=== PATIENT | female | born 1975 | race African-American/Black ===

== ENCOUNTER 2020-02-02 23:12 | Emergency (ER) | payer OTHER ==
[~2020-02-02] VITALS: Ht 162.6 cm; Wt 54.4 kg
[2020-02-02 23:24] VITALS: BP 132/70
[2020-02-02] MEDS ORDERED: TYLENOL EXTRA500 MG ORAL (23:40)
[2020-02-02] MEDS ORDERED: ROBAXIN-750750 MG PO (23:40)
[2020-02-02 23:45] VITALS: BP 132/70
--- NOTE | 2020-02-03 00:05 | Emergency Room Report ---
History of Present Illness General Chief Complaint: Pain Source: Patient Present Illness HPI 44-year-old female presents ED for evaluation of right shoulder pain and chest pain x1 week. Dull, 8 out of 10 radiating towards right side chest. Worse with twisting and bending and movements. Denies shortness of breath. Denies fevers or chills. Denies cough. Denies smoking or drug use. Denies sick contacts or recent travel. No other aggravating relieving factors. Denies any other associated symptoms Allergies: Coded Allergies: No Known Allergies (Unverified , 02/02/20) COVID-19 Screening Contact w/high risk pt: No Recent Travel to affected area: No Experienced COVID-19 symptoms?: No Patient History Past Medical History: none Past Surgical History: none Pertinent Family History: none Social History: Reports: smoking; Denies: alcohol use, drug use Last Menstrual Period: 12/28 Now: No Immunizations: UTD Reviewed Nursing Documentation: PMH: Agreed; PSxH: Agreed Nursing Documentation-PMH Past Medical History: No Stated History Review of Systems All Other Systems: negative except mentioned in HPI Physical Exam Vital Signs Date Time Temp Pulse Resp B/P (MAP) Pulse Ox O2 Delivery O2 Flow Rate FiO2 02/02/20 23:15 98.4 66 18 132/70 (90) 98 Room Air Sp02 EP Interpretation: reviewed, normal General Appearance: no apparent distress, alert, GCS 15, non-toxic Head: normocephalic, atraumatic Eyes: bilateral eye normal inspection, bilateral eye PERRL ENT: hearing grossly normal, normal pharynx, no angioedema, normal voice Neck: full range of motion, supple/symm/no masses Respiratory: chest non-tender, lungs clear, normal breath sounds, speaking full sentences Cardiovascular #1: regular rate, rhythm, no edema Cardiovascular #2: 2+ carotid (R), 2+ carotid (L), 2+ radial (R), 2+ radial (L) , 2+ dorsalis pedis (R), 2+ dorsalis pedis (L) Gastrointestinal: normal bowel sounds, non tender, soft, non-distended, no guarding, no rebound Rectal: deferred Genitourinary: normal inspection, no CVA tenderness Musculoskeletal: back normal, normal range of motion, gait/station normal, non- tender Neurologic: alert, motor strength/tone normal, oriented x3, sensory intact, responsive, speech normal Psychiatric: judgement/insight normal, memory normal, mood/affect normal, no suicidal/homicidal ideation Reflexes: 3+ bicep (R), 3+ bicep (L), 3+ tricep (R), 3+ tricep (L), 3+ knee (R) , 3+ knee (L) Lymphatic: no adenopathy Medical Decision Making Diagnostic Impression: Primary Impression: Chest wall pain ER Course Hospital Course 44-year-old female presents ED complaining of reproducible chest wall pain , R shoulder pain Differential diagnoses include: Rib fracture, MT/unstable angina, contusion, muscle strain Clinical course Patient placed on stretcher. After initial history exam reveals female in no acute distress. There is no reproducible pain at this time. No chest wall pain. No shoulder pain. Full range of motion of the right shoulder. Lungs clear. Good breath sounds. Vitals stable. Patient denies pain at this time because she took Tylenol prior to arrival. I believe this pain is muscular. Patient has no cardiac risk factors. EKG normal sinus rhythm no acute ischemic changes interpreted by me Safe for discharge for close outpatient follow-up. I will provide referrals I. I feel this is a highly complex case requiring extensive working including EKG/Rhythm strip, Xray/CT/US, Blood/urine lab work, repeat exams while in ED, and administration of strong opiates/narcotics for pain control, admission to hospital or close patient follow up. Diagnosis - chest wall pain Stable and discharged to home with prescription for tylenol, robaxin. Instructed to followup with PMD. Return to ED if symptoms recur or worsen EKG Diagnostic Results Rate: normal Rhythm: NSR ST Segments: no acute changes ASA given to the pt in ED: No Rhythm Strip Diag. Results EP Interpretation: yes Rhythm: NSR, no PVC's, no ectopy Last Vital Signs Date Time Temp Pulse Resp B/P (MAP) Pulse Ox O2 Delivery O2 Flow Rate FiO2 02/02/20 23:24 98.4 88 18 132/70 98 Room Air Status: improved Disposition: HOME, SELF-CARE Condition: Stable Scripts Methocarbamol* (ROBAXIN-750*) 750 Mg Tablet 750 MG PO TID, #21 TAB 0 Refills Prov: Ruben Templeton MD 02/02/20 Acetaminophen* (TYLENOL EXTRA STRENGTH*) 500 Mg Tablet 500 MG ORAL Q8H PRN for Prn Headache/Temp > 101, #30 TAB 0 Refills Prov: Ruben Templeton MD 02/02/20 Referrals: NON PHYSICIAN (PCP) [facility] Patient Instructions: Chest Wall Pain, [id number] Ruben Templeton MD Feb 03, 2020 00:05
== END 2020-02-02 23:45 | disposition home or self-care (01) ==
LOC: EMR 23:38
DX: R07.9 Chest pain, unspecified (principal); M25.511 Pain in right shoulder; F17.200 Nicotine dependence, unspecified, uncomplicated
CPT/HCPCS: 93005; Z7502; 99283